=== PATIENT | female | born 1955 | race Hispanic/Latino ===

== ENCOUNTER 2019-02-23 18:35 | Observation (INO) | payer OTHER, SELFPAY ==
[2019-02-23 19:50] LABS: Bilirubin Negative (Negative); Blood, Urine Negative (Negative); Clarity Clear (Clear); Glucose, Urine (Dipstick) Normal (Negative); Leukocyte 25 Leu/uL (Negative); Nitrite Negative (Negative); Protein, Urine (Dipstick) Negative (Neg-Trace); RBC/HPF 0-3 HPF (0-3); Squamous Epithelial 0-3 HPF (0-3); Urobilinogen Normal mg/dL (Less than 2); WBC/HPF 0-3 HPF (0-3)
[2019-02-23 20:02] LABS: Bacteria/HPF Rare-Few HPF (None Seen)
[2019-02-23] MEDS ORDERED: HYDROcodone/Acetaminophen 5/325 mg Tablet PO PRN ×2 (21:44)
[2019-02-23] MEDS ORDERED: Senokot S 8.6-50 MG TAB PO PRN (21:44)
[2019-02-23] MEDS ORDERED: Dextrose 50% Abboject 50 ML SYRINGE SLOW IVP PRN (22:16)
[2019-02-23] MEDS ORDERED: Dextrose 5% in Water 1,000 ML IV PRN (22:16)
[2019-02-23] MEDS ORDERED: HumaLOG 300 UNITS/3 ML VIAL SC PRN ×2 (22:16)
[2019-02-23 22:23] VITALS: BMI 38.1
[2019-02-23] MEDS: Sodium Chloride 0.9% 1,000 ML IV SCH (23:05)
[2019-02-23] MEDS: Acetaminophen 325 MG TAB PO PRN (23:18)
[2019-02-23 23:42] LABS: Troponin I 0.014 ng/mL (< 0.028)
--- NOTE | 2019-02-24 00:01 | HP ---
PRIMARY CARE PHYSICIAN: Kary Bell DO CHIEF COMPLAINT: Chest pain. HISTORY OF PRESENT ILLNESS: Ms. Lal is a 63-year-old female, who went to the emergency room in [place] earlier today following a syncopal episode at her PCP's office. Per the patient, she went to her doctor's office for an upper respiratory illness that she has had for the last 2 weeks, had a near syncopal episode, denies LOC, and she was brought to the emergency room. She reports left-sided chest pain with radiation to her back. She reports that she has felt unwell for the last 2 weeks, very fatigued, not her normal self. Reports that she has been dizzy and has fallen a couple of times. Family reports that she has not been eating like she normally does. The patient says that she just does not feel like eating much. She denied any fever or chills. Reports some intermittent gas pains, but denies any abdominal pain. Denied any nausea, vomiting, diarrhea, or constipation. Reports that she has been getting short of breath with exertion and this chest pain today, worse with any sort of exertion as well. She has some tenderness to the left side of her back on palpation, reports that is from previous fall. In the emergency room at [place], the patient was given sublingual nitroglycerin, some nitroglycerin paste and an aspirin. Over there, her EKG showed sinus tach, beats per minute 123, ST depression in V4, V5, V6. Chest x-ray was negative for any acute process and first 2 troponins have been undetectable. She did have elevated calcium at 11.4, it is a little higher; in 2018, it was 10.1; in 2016, it was 10.2. We will recheck this in the morning. The patient will be admitted to the observation unit for further management. The patient had a chest thorax CTA while in the emergency room at [place], which showed no evidence of a pulmonary emboli. Also had a thyroid hypodensity, which needs to be evaluated and a nonemergent outpatient thyroid ultrasound. REVIEW OF SYSTEMS: The patient reports chills. Denies fever. Reports generalized weakness. Reports a little bit of a sore throat, chest pain with radiation to the back, diaphoresis, presyncope, and syncope. Reports a cough and shortness of breath. Reports some nausea. Reports some arthralgias and back pain. Reports some dyspnea on exertion. All other systems reviewed and are negative unless mentioned in the HPI. PAST MEDICAL HISTORY: Diabetes, gallstones. PAST SURGICAL HISTORY: Cholecystectomy. PSYCHIATRIC HISTORY: Anxiety and depression. SOCIAL HISTORY: Denies any alcohol use or drug use. No smoking history. KNOWN ALLERGIES: To lisinopril, gives her a cough. CURRENT MEDICATIONS: 1. Metformin 1000 mg p.o. b.i.d. 2. Glyburide 5 mg p.o. once a day. PHYSICAL EXAMINATION: VITAL SIGNS: Blood pressure 159/81, pulse is 90, respirations 17, temperature is 98.4, pO2 sats are 95% on room air. CONSTITUTIONAL: Blood pressure, little hypertensive. The patient is alert and oriented to person, place, and time. HEENT: Head is atraumatic and normocephalic. Eyes, conjunctiva are normal. Pupils are equally round and reactive to light. ENT, mouth exam is normal. Mucous membranes are moist. NECK: Normal range of motion. Trachea is midline. RESPIRATORY/CHEST: Breath sounds are clear. Chest expansion is equal. She does have some point tenderness to paraspinal on the left thoracic to lumbar. CARDIOVASCULAR: Regular rate and rhythm. Heart sounds are normal. ABDOMEN: Nontender. Bowel sounds are heard. EXTREMITIES: Upper extremity, normal inspection. Normal range of motion. No weakness. Lower extremity, inspection is normal. Motor strength is normal. Pedal pulses are normal. Edema noted to bilateral lower extremities, +1. NEURO: The patient is oriented to person, place, and time. No focal motor or sensory deficits. SKIN: Warm, dry, normal in color. PSYCH: Has a normal affect. LABORATORY DATA: Chemistry; sodium 139, potassium 3.6, chloride 105, carbon dioxide 22, gap is 16, BUN is 11, creatinine is 0.77, estimated GFR is 75, calcium 11.4, magnesium 2.1. Alkaline phosphatase 125. Remaining liver enzymes are unremarkable. Urine specific gravity 1.050. White blood cell count is 8.7, hemoglobin 15.1, hematocrit 48.2, platelets are 259. PLAN/ASSESSMENT: 1. Chest pain, near syncopal episode today. Family reports that she has had 2 other episodes. Reports some dizziness. Reports dyspnea on exertion and some EKG changes. Troponin x2 has been undetectable. We will check one more time. CTA negative for any acute process. In light of this story and EKG changes, we will ask Cardiology to consult before ordering a stress test. The patient was given an aspirin today in the ER; we will continue. We will keep on the monitor. We will recheck lab values in the morning. 2. Diabetes type 2. Accu-Cheks a.c. and at bedtime sliding scale for coverage. We will trend. 3. Due to recent falls and back pain, we will ask Physical Therapy/Occupational Therapy to evaluate and give us recommendations. 4. Hypercalcemia. Recheck value in the morning. Also add a vitamin D and a parathyroid. 5. Deep vein thrombosis and gastrointestinal prophylaxis have been started. 6. Hospital course is dependent on clinical findings. Job ID: [id number]
[2019-02-24 06:06] LABS: #Basophils 0.1 thou/uL (0.0-0.2); #Eosinphils 0.2 thou/uL (0.0-0.7); #Lymphocytes 2.8 thou/uL (1.20-3.40); #Monocytes 0.6 thou/uL (0.11-0.59); #Neutrophils 5.1 thou/uL (1.40-6.50); %Basophils 0.6 % (0.0-1.0); %Eosinophils 2.5 % (0.0-10.0); %Lymphocytes 31.5 % (21.0-51.0); %Monocytes 7.3 % (0.0-10.0); Hemoglobin 12.9 g/dL (12.0-16.0); Mean Corpuscular HGB CONC 34.3 g/dL (32.0-36.0); Mean Corpuscular Hemoglobin 29.5 pg (27.0-31.0); Mean Platelet Volume 7.4 fL (7.4-10.4); Platelet Count 242 thou/uL (130-400); RBC Distribution Width 12.3 % (11.5-14.5); Red Blood Cell (RBC) Count 4.38 mill/uL (4.20-5.40); White Blood Cell (WBC) Count 8.8 thou/uL (4.8-10.8)
[2019-02-24 06:34] LABS: ALT (SGPT) 32 U/L (8-55); AST (SGOT) 22 U/L (5-34); Albumin 3.8 g/dL (3.4-4.8); Alkaline Phosphatase 103 U/L (40-110); Anion Gap 12 mmol/L (10-20); BUN (Urea Nitrogen) 14 mg/dL (9.8-20.1); Bilirubin, Total 0.5 mg/dL (0.2-1.2); Calc. Creatinine Clearance 112 mL/min (70-130); Calcium 10.3 mg/dL (7.8-10.44); Carbon Dioxide 26 mmol/L (23-31); Chloride 105 mmol/L (98-107); Estimated GFR-MDRD 79; Globulin 3.1 g/dL (2.4-3.5); Glucose 137 mg/dL (80-115); Potassium 4.1 mmol/L (3.5-5.1); Protein, Total 6.9 g/dL (6.0-8.3); Sodium 139 mmol/L (136-145)
[2019-02-24] MEDS: Enoxaparin Sodium 40 MG/0.4 ML SYRINGE SC SCH (08:54)
[2019-02-24] MEDS: Aspirin 81 mg Enteric Coated Tablet PO SCH (08:54)
[2019-02-24] MEDS: Famotidine 20 MG TAB PO SCH ×2 (08:54→20:22)
[2019-02-24] MEDS ORDERED: ADENOSINE 60 MG/20 ML VIAL ONE (09:21)
--- NOTE | 2019-02-24 10:57 | CON ---
DATE OF CONSULTATION: 02/24/2019 REASON FOR CONSULTATION: Syncopal episode, chest pain. HISTORY OF PRESENT ILLNESS: Ms. Lal is a 63-year-old woman. The patient went to see her a physician yesterday as she had not been feeling well. She has had a cough and she said her chest hurt when she coughed or took a deep breath. She had an upper respiratory illness for a couple of weeks. The patient tells me she was in the doctor's office. She was sitting. She did not feel well. She got out and then she fainted. No fever or chills. The patient tells me that she had been up until this episode. She had been feeling fine. No chest pain or pressure. She is asymptomatic before that. The patient had a CT angiogram, showed no pulmonary emboli. The EKG was thought to show some ST depressions, but looks like there was lead movement during that EKG. PAST MEDICAL HISTORY: 1. She has had diabetes, she says for at least 15 years. 2. History of gallstones. PAST SURGICAL HISTORY: Cholecystectomy. MEDICATIONS PRIOR TO ADMISSION: 1. Metformin. 2. Glyburide. PHYSICAL EXAMINATION: GENERAL: This is a pleasant [place] female. VITAL SIGNS: Blood pressure earlier was 159/81, pulse 90. EYES: Sclerae, nonicteric. MOUTH: Mucous membranes moist. NECK: Supple. No lymphadenopathy. LUNGS: Clear. No wheezing, rales, or rhonchi. CARDIAC: Normal S1. Normal S2. There is no murmur, rub, or gallop. ABDOMEN: Obese, nontender. No hepatosplenomegaly. EXTREMITIES: Warm and dry. No clubbing or cyanosis. There is no edema. The peripheral pulses are difficult to feel, but palpable dorsalis pedis and posterior tibials bilaterally. Femoral pulses are difficult to feel, but mostly due to the obesity, it appears as they are deep. DIAGNOSTIC STUDIES: EKG shows some nonspecific ST changes. The ST changes that were noted in the history and physical, I think a lot of that is related to lead movement during that beat. There are some nonspecific changes. ASSESSMENT: 1. Chest pain, somewhat atypical for angina. 2. Upper respiratory illness. 3. Syncopal episode, sounds it is probably orthostatic hypotension. 4. Strong risk factors for coronary artery disease and a long history of diabetes. PLAN: 1. Stress testing to be done. 2. Check lipid profile. 3. Further recommendations following that. Job ID: [id number]
[2019-02-24 11:19] LABS: Cardiac Risk 3.7 (Less than 4.5)
[2019-02-24] MEDS: Sodium Chloride 0.9% 1,000 ML IV SCH ×2 (12:26→15:50)
--- NOTE | 2019-02-24 13:40 | NM ---
NUCLEAR MEDICINE CARDIAC STRESS ONLY: Cardiac gating and wall motion was determined. HISTORY: Chest pain. TECHNIQUE: Patient was administered 28.60 mCi of technetium 99m MAA for a stress imaging. FINDINGS: Homogeneous distribution of radiotracer in the left ventricle. End-diastolic volume is 52 mL. End-systolic volume is 17 mL. Cardiac wall motion and cardiac gatin% ejection fraction. IMPRESSION: 1. 67% ejection fraction. 2. Homogeneous distribution of the radiotracer in the left ventricle. Transcribed Date/Time: 02/24/2019 1:43 PM
--- NOTE | 2019-02-24 15:12 | PDOC.HOSPP ---
- Subjective Encounter Date: 02/24/19 Encounter Time: 15:11 Subjective: Ms. Lal was seen today in follow-up of chest pain. She does not have any complaints. She says the chest pain has resolved. - Objective Vital Signs & Weight: Vital Signs (12 hours) Temp Pulse Pulse Pulse Resp BP BP 02/24/19 13:34 81 93 147/66 H 142/68 H 02/24/19 11:50 98.4 F 71 16 02/24/19 08:00 98.5 F 74 16 02/24/19 03:16 98.3 F 79 15 BP BP BP Pulse Ox 02/24/19 13:34 02/24/19 11:50 144/66 H 97 02/24/19 08:00 141/66 H 140/64 145/70 H 98 02/24/19 03:16 122/62 97 Weight Weight 204 lb 3.2 oz I&O: 02/23/19 02/24/19 02/25/19 06:59 06:59 06:59 Intake Total 801 Output Total 650 Balance 151 Result Diagrams: 02/24/19 05:06 02/24/19 05:06 Additional Labs: Accuchecks 02/24/19 02/23/19 10:41 21:58 POC Glucose 117 H 92 Hospitalist ROS - Medication Medications: Active Medications Generic Name Dose Route Start Last Admin Trade Name Freq PRN Reason Stop Dose Admin Acetaminophen 650 mg 02/23/19 21:44 02/23/19 23:18 Tylenol PO 650 mg Q4H PRN Administration Headache/Fever/Mild Pain (1-3) Aspirin 81 mg 02/24/19 09:00 02/24/19 08:54 Ecotrin PO 81 mg DAILY HELENA Administration Enoxaparin Sodium 40 mg 02/24/19 09:00 02/24/19 08:54 Lovenox SC 40 mg 0900 HELENA Administration Famotidine 20 mg 02/24/19 09:00 02/24/19 08:54 Pepcid PO 20 mg BID HELENA Administration Sodium Chloride 1,000 mls @ 75 mls/hr 02/23/19 21:45 02/24/19 12:26 Normal Saline 0.9% IV Not Given .[id number] HELENA - Exam Eye: PERRL Heart: RRR, no murmur, no gallops, no rubs, normal peripheral pulses Respiratory: CTAB, no wheezes, no rales, no ronchi, normal chest expansion Gastrointestinal: soft, non-tender, non-distended, normal bowel sounds, no palpable masses, no hepatomegaly Extremities: no cyanosis, no clubbing, no edema Hosp A/P (1) Chest pain Code(s): R07.9 - CHEST PAIN, UNSPECIFIED Status: Acute (2) Hypertension Code(s): I10 - ESSENTIAL (PRIMARY) HYPERTENSION Status: Acute (3) Diabetes mellitus type 2 in nonobese Code(s): E11.9 - TYPE 2 DIABETES MELLITUS WITHOUT COMPLICATIONS Status: Chronic (4) Hypovitaminosis D Code(s): E55.9 - VITAMIN D DEFICIENCY, UNSPECIFIED Status: Chronic - Plan * Chest pain- probable non- cardiac * Hypovitaminosis D - will start Drisdol * HTN- will consider start Lisinopril * DM- blood glucose is stable
[2019-02-24] MEDS: Acetaminophen 325 MG TAB PO PRN (17:26)
[2019-02-24] MEDS ORDERED: FLU VACC QS2019-20(6MOS UP)/PF 60 MCG/0.5 ML SYRINGE IM ONE (21:00)
[2019-02-25] MEDS: Sodium Chloride 0.9% 1,000 ML IV SCH (04:16)
[2019-02-25] MEDS: Acetaminophen 325 MG TAB PO PRN (07:53)
[2019-02-25] MEDS: Aspirin 81 mg Enteric Coated Tablet PO SCH (09:21)
[2019-02-25] MEDS: Enoxaparin Sodium 40 MG/0.4 ML SYRINGE SC SCH (09:21)
[2019-02-25] MEDS: Famotidine 20 MG TAB PO SCH (09:21)
[2019-02-25 11:35] VITALS: BP 129/66; TEMP 98.1
--- NOTE | 2019-02-25 14:51 | PDOC.HOSPP ---
- Subjective Encounter Date: 02/25/19 Encounter Time: 14:49 Subjective: Ms. Lal was seen today in follow-up. She does not have any new complaints. - Objective Vital Signs & Weight: Vital Signs (12 hours) Temp Pulse Resp BP BP BP BP 02/25/19 11:35 98.1 F 85 16 129/66 02/25/19 08:05 98.6 F 95 18 137/71 135/62 154/70 H 02/25/19 04:13 98.3 F 95 20 136/62 Pulse Ox 02/25/19 11:35 99 02/25/19 08:05 97 02/25/19 04:13 97 Weight Weight 204 lb 3.2 oz I&O: 02/24/19 02/25/19 02/26/19 06:59 06:59 06:59 Intake Total 801 3117 600 Output Total 650 Balance 151 3117 600 Result Diagrams: 02/24/19 05:06 02/24/19 05:06 Additional Labs: Accuchecks 02/25/19 02/25/19 02/24/19 11:13 06:27 20:48 POC Glucose 165 H 150 H 119 H 02/24/19 16:58 POC Glucose 125 H Hospitalist ROS - Medication Medications: Active Medications Generic Name Dose Route Start Last Admin Trade Name Donovan PRN Reason Stop Dose Admin Acetaminophen 650 mg 02/23/19 21:44 02/25/19 07:53 Tylenol PO 650 mg Q4H PRN Administration Headache/Fever/Mild Pain (1-3) Aspirin 81 mg 02/24/19 09:00 02/25/19 09:21 Ecotrin PO 81 mg DAILY HELENA Administration Enoxaparin Sodium 40 mg 02/24/19 09:00 02/25/19 09:21 Lovenox SC 40 mg 0900 HELENA Administration Famotidine 20 mg 02/24/19 09:00 02/25/19 09:21 Pepcid PO 20 mg BID HELENA Administration Sodium Chloride 1,000 mls @ 75 mls/hr 02/23/19 21:45 02/25/19 04:16 Normal Saline 0.9% IV 1,000 mls .[id number] HELENA Administration - Exam Eye: PERRL Heart: RRR, no murmur, no gallops, no rubs, normal peripheral pulses Respiratory: CTAB, no wheezes, no rales, no ronchi, normal chest expansion Gastrointestinal: soft, non-tender, non-distended, normal bowel sounds, no palpable masses, no hepatomegaly Extremities: no cyanosis, no clubbing Hosp A/P (1) Chest pain Code(s): R07.9 - CHEST PAIN, UNSPECIFIED Status: Acute (2) Hypertension Code(s): I10 - ESSENTIAL (PRIMARY) HYPERTENSION Status: Acute (3) Diabetes mellitus type 2 in nonobese Code(s): E11.9 - TYPE 2 DIABETES MELLITUS WITHOUT COMPLICATIONS Status: Chronic (4) Hypovitaminosis D Code(s): E55.9 - VITAMIN D DEFICIENCY, UNSPECIFIED Status: Chronic - Plan * Chest pain- probable non- cardiac * Hypovitaminosis D - will start Drisdol * HTN- has been stable * DM- blood glucose is stable * Stable for discharge home
--- NOTE | 2019-02-26 00:17 | DIS ---
DATE OF ADMISSION: 02/23/2019 DATE OF DISCHARGE: 02/25/2019 DISCHARGE DISPOSITION: Home. PRIMARY CARE PHYSICIAN: Dr. Bell. DISCHARGE DIAGNOSES: 1. Chest pain, probable noncardiac. 2. Probable viral illness. 3. Diabetes mellitus. 4. Hypovitaminosis D. DISCHARGE MEDICATIONS: Include: 1. Drisdol 1.25 mg every seven days. 2. Metformin 1000 mg twice daily. 3. Glyburide 5 mg daily. PROCEDURES DONE DURING THE ADMISSION: The patient had a nuclear stress test, which was negative for any reversible ischemia. The patient also had an echocardiogram in which the ejection fraction was estimated at 55% to 60%. There was no significant valvular disorder. CODE STATUS: Full code. ALLERGIES: TO LISINOPRIL. HOSPITAL COURSE: Ms. Lal is a very pleasant 63-year-old female, who presented to the emergency room with chest pain. She did admit to having some upper respiratory illness in the past 2 weeks prior to admission. However, due to diabetes, she was brought in for observation and ruled out. She underwent nuclear stress test, which was negative as well as an echocardiogram, which did not show any significant wall motion abnormalities. She was subsequently discharged home. She was found to have a low vitamin D level and is being placed on ergocalciferol once weekly for replacement. Job ID: [id number]
[2019-03-03] MEDS ORDERED: Ergocalciferol 1.25 MG(50,000 UNITS) CAP PO SCH (09:00)
== END 2019-02-25 15:52 | disposition home or self-care (01) ==
LOC: ERS 18:35 → 2SW 22:09
PROVIDERS: ADMIT Internal Medicine; ATTEND Internal Medicine
DX: R07.9 Chest pain, unspecified (principal); R55 Syncope and collapse; E11.9 Type 2 diabetes mellitus without complications; F41.9 Anxiety disorder, unspecified; F32.9 Major depressive disorder, single episode, unspecified; J06.9 Acute upper respiratory infection, unspecified; E55.9 Vitamin D deficiency, unspecified; Z79.84 Long term (current) use of oral hypoglycemic drugs; Z88.8 Allergy status to other drugs, medicaments and biological substances
CPT/HCPCS: 36415; 36416; 78452; 80053; 80061; 81003; 81015; 82306; 83970; 85025; 87633; 90471; 90686; 90732; 93005; 93017; 93306; 96360; 96361; 96372; A9500; G0008; G0009; G0378; J0153; J1650